=== PATIENT | male | born 1980 | race Caucasian/White ===

== ENCOUNTER 2016-09-01 13:08 | Emergency (ER) | payer SELFPAY | END 2016-09-01 13:09 | disposition left against medical advice (07) | LOC: ER 13:08 | DX: F10.10 Alcohol abuse, uncomplicated (principal); F17.200 Nicotine dependence, unspecified, uncomplicated; F11.23 Opioid dependence with withdrawal | CPT/HCPCS: 80048; 80305; 80307; 85025; 93005; 99285 ==